=== PATIENT | female | born 1935 | race Caucasian/White ===

== ENCOUNTER 2017-03-23 06:05 | Day surgery (SDC) | payer OTHER ==
[2017-03-18 13:52] VITALS: BMI 33.4
[2017-03-23] MEDS ORDERED: TETRACAINE 0.5% OPHTH SOLN 2 ML BOTTLE ONE (07:21)
[2017-03-23] MEDS ORDERED: BACITRACIN 3.5 GM OPTHALMIC OINT TUBE ONE (07:21)
[2017-03-23] MEDS ORDERED: POVIDONE-IODINE 5% OPHTHALMIC PREP 30 ML SOLUTION ONE (07:21)
[2017-03-23] MEDS ORDERED: BUPIVACAINE HCL/PF 0.5% (5MG/ML) 10 ML VIAL ONE (07:21)
[2017-03-23] MEDS ORDERED: LIDOCAINE 1%/EPI 1:100000 (20 ML MULTI DOSE VIAL) ONE (07:22)
[2017-03-23] MEDS ORDERED: PROPOFOL 20 ML ONE ×3 (07:26→09:28)
[2017-03-23] MEDS ORDERED: ceFAZolin SODIUM 1 GM VIAL ONE (07:56)
[2017-03-23] MEDS ORDERED: GENTAMICIN 0.3% OPHTHALMIC OINTMENT 3.5 GM/TUBE ONE (07:57)
[2017-03-23] MEDS ORDERED: ONDANSETRON 4 MG/2 ML VIAL IVPUSH PRN (09:54)
[2017-03-23] MEDS ORDERED: PROMETHAZINE HCL 25 MG/1 ML VIAL IVPUSH PRN (09:54)
[2017-03-23] MEDS ORDERED: oxyCODONE HCL 5 MG TABLET PO PRN ×2 (09:54)
--- NOTE | 2017-03-23 11:24 | OP ---
DATE OF OPERATION: 03/23/2017 PREOPERATIVE DIAGNOSIS: Ectropion with epiphora, right lower lid, and ectropion with epiphora, left lower lid, with medial canthal tendon laxity, lateral canthal tendon laxity ectropion in both lower lids and poor snapback of both lower lids, punctal eversion, both lower lids, and punctal stenosis, both lower lids. POSTOPERATIVE DIAGNOSIS: Ectropion with epiphora, right lower lid, and ectropion with epiphora, left lower lid, with medial canthal tendon laxity, lateral canthal tendon laxity ectropion in both lower lids and poor snapback of both lower lids, punctal eversion, both lower lids, and punctal stenosis, both lower lids. PROCEDURE: 1. Medial canthal tendon plication, right lower lid, and medial canthal tendon plication, left lower lid. 2. Conjunctivoplasty with punctal eversion, right lower lid, and conjunctivoplasty with punctal eversion, left lower lid. 3. Lateral tarsal strip, right lower lid, and lateral tarsal strip, left lower lid. 4. Punctoplasty, right lower lid, and punctoplasty, left lower lid. SURGEON: Filomena Estrada MD ANESTHESIA: LMA. COMPLICATONS: None. OPERATION REPORT: Patient was brought to the operating room, placed on the operating room table. Vital signs monitored by Anesthesia. Patient was given intravenous sedation. She was placed under LMA by the nurse anesthesiologist. Following which, time-out was performed. Tetracaine was placed in both eyes. Then, medial canthal incisions were made in a curvilinear fashion extending up along the medial canthal tendon and the medial portion of the eyelid. Lateral canthal incisions were made where marked as well. Patient was prepped and draped in the usual sterile fashion exposing both eyes. The following procedures were performed bilaterally. An incision was made along the previously marked line of the medial canthus extending from the nasal portion of the lower lid curving up towards overlying the medial canthal tendon. The tissues were then with sharp and blunt dissection exposing the medial canthal tendon at its insertion of the medial canthal bones and also the medial end of the tarsotendinous junction leaving the orbicularis intact. The port in the medial end of the tarsotendinous junction was identified with the forceps. It was secured with a double-arm 5-0 Prolene, and the Prolene was then weaved underneath the orbicularis and then underneath the anterior limb of the medial canthal tendon where it exited through the medial canthal incision, tightening the medial canthal support, but not advancing it nasally preventing migration beyond the nasal limits. This was performed bilaterally, and the knot was buried. Attention was turned to the conjunctiva underlying the punctum. A subpunctal shane of conjunctival retractor was excised, and this was closed with double-arm 5-0 chromic suture grabbing the inferior retractor, superior tarsoconjunctiva, and exiting through the full-thickness eyelid onto the nasal eyelid skin. The lateral tarsal strip was then performed by incising the canthus down to the periosteum, the inferior lateral canthal tendon jass from the orbital rim, overlapping it over the orbital rim, marking with a sterile marking pen, dividing to an anterior and posterior lamella. The anterior lamella was excised. The posterior lamella was denuded of epithelium posteriorly and superiorly. Retractors were released, and then, it was attached to the lateral orbital rim with a double-arm 5-0 Prolene suture reinforced with 6-0 Vicryl lasso suture. Prior to tying the Prolene, the lateral canthal angles were reformed with 5-0 chromic to the mckenzie line of the upper and lower lid and tying in a buried fashion. Prior to tying the canthal sutures, the punctum was then dilated with a punctal dilator, and a tiny snip of posterior punctal tissue was excised, slightly widening the punctum of both lower lids. The Prolene sutures were then tied, securing the lateral tarsal strip to the orbital rims with appropriate tension and symmetry. The lateral tarsal strip was secured overlying the Prolene with a 5-0 chromic. Subcuticular tissues were closed with 5-0 chromic suture, and the skin was closed with running 6-0 plain suture after antibiotic irrigation. The nasal punctal inverting sutures were then tied with a 5-0 chromic on the skin surface inverting the punctum. Antibiotic irrigation was used throughout the case. Cautery was used where necessary Beaufort needle. Gentamicin ointment was then placed in the eye and on the sutures nasally and laterally, and the patient was taken to the recovery room in stable condition. FILOMENA ESTRADA M.D. [id number]
[2017-03-23 11:35] VITALS: TEMP 98.7
[2017-03-23 12:03] VITALS: BP 128/62; PULSE 80
== END 2017-03-23 12:10 | disposition home or self-care (01) ==
LOC: FASU 06:05
PROVIDERS: ATTEND Ophthalmology
PROC: 08SQ0ZZ Reposition Right Lower Eyelid, Open Approach (ICD-10-PCS; 2017-03-23)
PROC: 08SR0ZZ Reposition Left Lower Eyelid, Open Approach (ICD-10-PCS; principal; 2017-03-23 08:28)
DX: H02.102 Unspecified ectropion of right lower eyelid (principal); H02.105 Unspecified ectropion of left lower eyelid; H04.223 Epiphora due to insufficient drainage, bilateral; H02.89 Other specified disorders of eyelid; H04.563 Stenosis of bilateral lacrimal punctum; H04.523 Eversion of bilateral lacrimal punctum
CPT/HCPCS: 94760